=== PATIENT | female | born 1960 | race Caucasian/White ===

== ENCOUNTER 2018-07-14 10:32 | Outpatient (CLI) | payer OTHER | END 2018-07-14 10:36 | disposition home or self-care (01) | LOC: SONOGRAMA 10:32 → MAMO-SONO 10:45 | DX: M25.572 Pain in left ankle and joints of left foot (principal); S93.432A Sprain of tibiofibular ligament of left ankle, initial encounter ==

== ENCOUNTER 2024-05-04 12:44 | Outpatient (CLI) | payer OTHER | END 2024-05-04 12:52 | disposition home or self-care (01) | LOC: RAD 12:44 | PROVIDERS: ATTEND Orthopaedic Surgery | DX: M79.641 Pain in right hand (principal); M79.642 Pain in left hand ==

== ENCOUNTER → 2025-03-28 07:39 | Outpatient (CLI) | payer OTHER ==
[2025-03-28 08:34] LABS: BASO % 0.6 % (0.1-1.2); EOS # 0.16 (0.04-0.54); EOS % 1.8 % (0.7-7.0); HEMATOCRIT 33.7 % (34.1-44.9); HEMOGLOBIN 11.1 g/dL (11.2-15.7); LYMPH # 1.63 (1.18-3.74); LYMPH % 18.7 % (19.3-53.1); MEAN CORPUSCULAR HEMOGLOBIN 27.8 pg (25.6-32.2); MONO # 0.63 (0.24-0.82); MONO % 7.2 % (4.7-12.5); NEUT # 6.23 (1.56-6.13); NEUT % 71.4 % (34.0-71.1); PLATELET COUNT 382 K/uL (163-369)
[2025-03-28 08:42] LABS: URINE APPEARANCE Clear; URINE BILIRRUBIN Negative (NEGATIVE); URINE BLOOD Negative; URINE COLOR Yellow; URINE GLUCOSE Negative (NEGATIVE); URINE KETONE Negative (NEGATIVE); URINE LEUKOCYTE Negative; URINE NITRATE Negative; URINE PROTEIN Negative (NEGATIVE); URINE UROBILINOGEN 0.2 E.U./dl
[2025-03-28 08:43] LABS: URINE BACTERIA 289.9 uL (0.0-1933); URINE EPITHELIAL CELLS 15.6 uL (0.0-38.8); URINE RBC 13.9 uL (0.0-20.8); URINE WBC 3.6 uL (0.0-23.2)
[2025-03-28 09:00] LABS: INR 0.96; PARTIAL THROMBOPLASTIN TIME 27.4 SECONDS (22.0-34.0); PROTHROMBIN TIME 10.5 SECONDS (9.0-11.5)
[2025-03-28 09:27] LABS: COL EPI 137 SECONDS (82-175)
[2025-03-28 09:47] LABS: ALBUMIN 3.8 gm/dL (3.4-5.0); BILIRUBIN TOTAL 0.37 mg/dL (0.3-1.2); CALCIUM 9.2 mg/dL (8.5-10.1); CREATININE SERUM 0.79 mg/dL (0.55-1.02); GFR 72.81; GLOBULINA 3.6 G/DL (2.4-3.5); POTASSIUM 4.42 mEq/L (3.5-5.1); TOTAL PROTEIN 7.4 gm/dL (6.4-8.2)
== END | disposition home or self-care (01) ==
LOC: RAD 07:39
PROVIDERS: ATTEND Orthopaedic Surgery
DX: D64.9 Anemia, unspecified (principal); D68.8 Other specified coagulation defects; N39.0 Urinary tract infection, site not specified; E11.8 Type 2 diabetes mellitus with unspecified complications

== ENCOUNTER 2025-03-28 08:17 | Outpatient (CLI) | payer OTHER | END 2025-03-28 08:21 | disposition home or self-care (01) | LOC: RAD 08:17 | PROVIDERS: ATTEND Orthopaedic Surgery | DX: M25.561 Pain in right knee (principal); Z76.89 Persons encountering health services in other specified circumstances ==

== ENCOUNTER 2025-08-21 06:00 | Day surgery (SDC) | payer OTHER ==
[2025-08-16 14:11] VITALS: BP 131/69
[~2025-08-21] VITALS: Ht 157.5 cm; Wt 82.6 kg
[~2025-08-21 06:00] MED LIST: BUMETANIDE1 MG PO; CANDESARTAN-HC1 EACH PO; DILTIAZEM ER180 M3 PO; DRIZALMA SPRINK60 MG PO; NEURONTIN600 M1 PO; PAMELOR10 MG PO; ROSUVASTATIN CA10 MG PO
[2025-08-21] MEDS ORDERED: BUPIVACAINE HCL/MPF 0.5% 30ML VIAL ONE (06:46)
[2025-08-21] MEDS ORDERED: CEFAZOLIN SODIUM 1,000 MG VIAL ONE (06:54)
[2025-08-21] MEDS ORDERED: ISOPROPYL ALCOHOL 30 ML OUNCE TOP ONE (07:45)
== END 2025-08-21 14:40 | disposition home or self-care (01) ==
LOC: CIR.AMB 06:00
PROVIDERS: ATTEND Orthopaedic Surgery
DX: M18.12 Unilateral primary osteoarthritis of first carpometacarpal joint, left hand (principal); M19.042 Primary osteoarthritis, left hand; Z88.0 Allergy status to penicillin; Z88.2 Allergy status to sulfonamides